=== PATIENT | male | born 1995 | race African-American/Black ===

== ENCOUNTER 2025-07-09 05:05 | Emergency (ER) | payer MEDICAID ==
[~2025-07-09] VITALS: Ht 167.6 cm; Wt 62.0 kg
[2025-07-09] MEDS: METHYLPREDNISOLONE SOD SUCC 125MG/2ML (ACT-O-VIAL) IV ONE (05:46)
[2025-07-09] MEDS: IPRATROPIUM BROMIDE (0.02%) 0.5MG/2.5ML NEB HHN SCH (05:49)
[2025-07-09] MEDS: ALBUTEROL (0.083%) 2.5MG/3ML NEB HHN SCH (05:49)
[2025-07-09 05:50] VITALS: PULSE 100; RESP 20; O2SAT 99
[2025-07-09 06:00] VITALS: PULSE 100; RESP 20; O2SAT 99
[2025-07-09 06:11] VITALS: PULSE 102; RESP 20; O2SAT 99
[2025-07-09] MEDS ORDERED: ALBU90AE INH (06:24)
[2025-07-09] MEDS ORDERED: P50 PO (06:25)
[2025-07-09 06:42] VITALS: BP 139/79; PULSE 83; RESP 20; TEMP 36.7; O2SAT 99
== END 2025-07-09 06:50 | disposition home or self-care (01) ==
LOC: ER 05:05
DX: J45.901 Unspecified asthma with (acute) exacerbation (principal); Z79.52 Long term (current) use of systemic steroids
CPT/HCPCS: 71045; 94640; 98960; 96374; 99283; J2919; Z7610 ×4; 94070; 94664